=== PATIENT | female | born 1985 | race Caucasian/White ===

== ENCOUNTER 2016-06-02 00:43 | Emergency (ER) | payer MEDICAID ==
[2016-06-02] MEDS ORDERED: IBUPROFEN 800 MG TABLET PO ONE (00:59)
--- NOTE | 2016-06-02 00:59 | ER Document Report ---
ED Medical Screen (RME) - General Stated Complaint: RIGHT ARM PAIN Time seen by provider: 00:56 Mode of Arrival: Ambulatory Information source: Patient Notes: 30-year-old female presents to ED for a cyst right axilla. The knot to the right axilla appears to be an abscess. Last menstrual period 05/05/2016. Site very tender to the touch she states she has a history of abscesses. I have greeted and performed a rapid initial assessment of this patient. A comprehensive ED assessment and evaluation of the patient, analysis of test results and completion of medical decision making process will be conducted by an additional ED providers. TRAVEL OUTSIDE OF THE [place] IN LAST 30 DAYS: No - Related Data Allergies/Adverse Reactions: cephalexin monohydrate [From Keflex] Allergy (Intermediate, Verified 05/12/14 11 :39) Hives codeine [Codeine] Allergy (Intermediate, Verified 05/12/14 11:39) Hives hydrocodone bitartrate [From Lortab] Allergy (Intermediate, Verified 05/12/14 11 :39) Hives oxycodone HCl [From Percocet] Allergy (Intermediate, Verified 05/12/14 11:39) Hives Penicillins Allergy (Intermediate, Verified 05/12/14 11:39) Hives prednisone [Prednisone] Allergy (Intermediate, Verified 05/12/14 11:39) Hives promethazine HCl [From Phenergan] Allergy (Intermediate, Verified 05/12/14 11:39 ) Hives Past Medical History Neurological Medical History: Renal/ Medical History: Denies: Hx Kidney Stones, Hx Ovarian Cysts, Hx Pelvic Inflammatory Disease Malignancy Medical History: Denies: Hx Breast Cancer, Hx Cervical Cancer, Hx Ovarian Cancer Psychiatric Medical History: Reports: Hx Depression Denies: Hx Bipolar Disorder, Hx Post Traumatic Stress Disorder, Hx Schizophrenia Infectious Medical History: Denies: Hx MRSA Past Surgical History: Reports: Hx Section, Hx Gynecologic Surgery - D& C - Immunizations Hx Diphtheria, Pertussis, Tetanus Vaccination: Yes
[2016-06-02] MEDS ORDERED: HYDROMORPHONE HCL 2 MG TABLET PO ONE (07:27)
[2016-06-02] MEDS ORDERED: CLINDAMYCIN HCL 150 MG CAPSULE PO ONE (07:27)
--- NOTE | 2016-06-02 07:31 | ER Document Report ---
HPI - HPI Patient complains to provider of: lump to right axilla Onset: Other - 2 days ago Onset/Duration: Persistent Quality of pain: Achy Pain Level: 5 Context: Patient complains of tender lump to right axilla that started to develop 2 days ago. Patient has a previous history of abscesses to her axillary area in the past. Patient denies any fever or history of MRSA. Associated Symptoms: Other - Tender lump to right axilla Exacerbated by: Movement Relieved by: Denies Similar symptoms previously: Yes Recently seen / treated by doctor: No - ROS ROS below otherwise negative: Yes Systems Reviewed and Negative: Yes All other systems reviewed and negative - CONSTITUTIONAL Constitutional: DENIES: Fever, Chills - NEURO Neurology: DENIES: Headache - CARDIOVASCULAR Cardiovascular: DENIES: Chest pain - REPRODUCTIVE LMP: 05/05/2016 Reproductive: DENIES: : - DERM Skin Color: Normal Notes: Tender area to right axilla Past Medical History - General Information source: Patient - Social History Smoking Status: Current Every Day Smoker Frequency of alcohol use: None Drug Abuse: None Occupation: food service supervisor Lives with: Family Family History: Reviewed & Not Pertinent Patient has suicidal ideation: No Patient has homicidal ideation: No Neurological Medical History: Renal/ Medical History: Denies: Hx Kidney Stones, Hx Ovarian Cysts, Hx Peritoneal Dialysis, Hx Pelvic Inflammatory Disease Malignancy Medical History: Denies: Hx Breast Cancer, Hx Cervical Cancer, Hx Ovarian Cancer Psychiatric Medical History: Reports: Hx Depression Denies: Hx Bipolar Disorder, Hx Post Traumatic Stress Disorder, Hx Schizophrenia Infectious Medical History: Denies: Hx MRSA Past Surgical History: Reports: Hx Section, Hx Gynecologic Surgery - D& C - Immunizations Hx Diphtheria, Pertussis, Tetanus Vaccination: Yes Vertical Provider Document - CONSTITUTIONAL Agree With Documented VS: Yes Exam Limitations: No Limitations General Appearance: WD/WN, No Apparent Distress - INFECTION CONTROL TRAVEL OUTSIDE OF THE [place] IN LAST 30 DAYS: No - HEENT HEENT: Atraumatic, Normocephalic - NECK Neck: Normal Inspection - RESPIRATORY Respiratory: Breath Sounds Normal, No Respiratory Distress O2 Sat by Pulse Oximetry: 98 - CARDIOVASCULAR Cardiovascular: Regular Rate, Regular Rhythm - BACK Back: Normal Inspection - MUSCULOSKELETAL/EXTREMETIES Musculoskeletal/Extremeties: MAEW - NEURO Level of Consciousness: Awake, Alert, Appropriate - DERM Integumentary: Warm, Abscess - Tender indurated area to right axilla, no central area of fluctuance. No concern for lymphangitis Course - Re-evaluation Re-evalutation: 06/02/16 07:28 Patient given the option of either incision and drainage or treating with oral antibiotics and warm compresses waiting for abscess to become fluctuant, patient declines incision and drainage at this time and prefers oral antibiotics at this time. Discussed worsening signs or symptoms that patient should return immediately for. - Vital Signs Vital signs: Temp Pulse Resp BP Pulse Ox 97.7 F 118 H 18 137/78 H 98 06/02/16 00:54 06/02/16 00:54 06/02/16 00:54 06/02/16 00:54 06/02/16 00:54 Discharge - Discharge Clinical Impression: Abscess Condition: Stable Disposition: HOME, SELF-CARE Instructions: Abscess ([facility]), Oral Narcotic Medication ([facility]), Clindamycin ([facility]) , Warm Packs ([facility]) Additional Instructions: Return immediately for any new or worsening symptoms Followup with your primary care provider, call tomorrow to make a followup appointment Apply warm compresses multiple times each day Prescriptions: Clindamycin HCl [Cleocin Hcl] 300 mg PO QID #28 capsule Hydromorphone HCl [Dilaudid 2 mg Tablet] 2 mg PO Q6 PRN #15 tablet PRN Reason: Forms: Return to Work Referrals: [facility] [Provider Group] - Follow up as needed [facility] [[facility]] - Follow up as needed
[2016-06-02 07:44] VITALS: BP 119/81
== END 2016-06-02 07:44 | disposition home or self-care (01) ==
LOC: ER 00:43
DX: L02.411 Cutaneous abscess of right axilla (principal); F17.200 Nicotine dependence, unspecified, uncomplicated
CPT/HCPCS: 99282; J3490 ×3

== ENCOUNTER 2017-01-31 00:44 | Emergency (ER) | payer MEDICAID ==
[2017-01-31 00:55] VITALS: BP 133/89
[2017-01-31] MEDS ORDERED: PERMETHRIN 1% LOTION 59 ML TP ONE (01:12)
--- NOTE | 2017-01-31 01:16 | ER Document Report ---
ED General - General Chief Complaint: Rash, itching Stated Complaint: POSSIBLE ALLERGIC REACTION Time Seen by Provider: 01/31/17 01:05 Notes: Patient is a 31-year-old female presents with complaint of a rash. Says been there for approximately month. She cleans houses for living. She denies any other symptoms. She says it has recently gotten worse now her kids and her fianc also have developed a rash. She has several red bumps over her feet and hands onto her legs. She denies noticing any bugs in her house. She says she keeps her house very clean. She denies any systemic symptoms. TRAVEL OUTSIDE OF THE [place] IN LAST 30 DAYS: No - Related Data Allergies/Adverse Reactions: cephalexin monohydrate [From Keflex] Allergy (Intermediate, Verified 06/02/16 07 :39) Hives codeine [Codeine] Allergy (Intermediate, Verified 06/02/16 07:39) Hives hydrocodone bitartrate [From Lortab] Allergy (Intermediate, Verified 06/02/16 07 :39) Hives oxycodone HCl [From Percocet] Allergy (Intermediate, Verified 06/02/16 07:39) Hives Penicillins Allergy (Intermediate, Verified 06/02/16 07:39) Hives prednisone [Prednisone] Allergy (Intermediate, Verified 06/02/16 07:39) Hives promethazine HCl [From Phenergan] Allergy (Intermediate, Verified 06/02/16 07:39 ) Hives Past Medical History - Social History Smoking Status: Unknown if Ever Smoked Frequency of alcohol use: None Drug Abuse: None Family History: Reviewed & Not Pertinent Neurological Medical History: Renal/ Medical History: Denies: Hx Kidney Stones, Hx Ovarian Cysts, Hx Peritoneal Dialysis, Hx Pelvic Inflammatory Disease Malignancy Medical History: Denies: Hx Breast Cancer, Hx Cervical Cancer, Hx Ovarian Cancer Psychiatric Medical History: Reports: Hx Depression Denies: Hx Bipolar Disorder, Hx Post Traumatic Stress Disorder, Hx Schizophrenia Infectious Medical History: Denies: Hx MRSA Past Surgical History: Reports: Hx Section, Hx Gynecologic Surgery - D& C - Immunizations Hx Diphtheria, Pertussis, Tetanus Vaccination: Yes Review of Systems - Review of Systems Notes: My Normal Review Basic REVIEW OF SYSTEMS: CONSTITUTIONAL : Denies fever, chills, or sweats. Denies recent illness. RESPIRATORY: Denies cough, cold, or chest congestion. Denies shortness of breath, difficulty breathing, or wheezing. GASTROINTESTINAL: Denies abdominal pain. Denies nausea, vomiting, or diarrhea. Denies constipation. Last BM: MUSCULOSKELETAL: Denies neck or back pain or joint pain or swelling. SKIN: Rash over extremities. ALL OTHER SYSTEMS REVIEWED AND NEGATIVE. Physical Exam - Vital signs Vitals: Temp Pulse Resp BP Pulse Ox 98.6 F 96 16 133/89 H 99 01/31/17 00:53 01/31/17 00:53 01/31/17 00:53 01/31/17 00:53 01/31/17 00:53 - Notes Notes: General Appearance: Well nourished, alert, cooperative, no acute distress, no obvious discomfort. Vitals: reviewed, See vital signs table. Head: no swelling or tenderness to the head Eyes: PERRL, EOMI, Conjuctiva clear Mouth: No decreasd moisture Extremities: strength 5/5 in all extremities, good pulses in all extremities, no swelling or tenderness in the extremities, no edema. Skin: Patient has several small red bumps that started between webspaces of her fingers and go up her arms and also some on her legs. This appears consistent with scabies. Neuro: speech clear, oriented x 3, normal affect, responds appropriately to questions. Course - Re-evaluation Re-evalutation: 01/31/17 01:25 Patient has a rash consistent with scabies. I informed her that bedbugs is also possible however I think most likely this is scabies. I was prescribed her permethrin cream. I encourage her to have a community relations manager come in [facility]. She says her fianc and kids are now getting the same rash and therefore I told her that they should either be evaluated by plumber helper or come to the ER for evaluation and treatment. Patient encouraged to return to ER if she has fevers, worsening rash, or feels unwell. Patient agrees with plan will be discharged home. Dictation of this chart was performed using voice recognition software; therefore, there may be some unintended grammatical errors. - Vital Signs Vital signs: Temp Pulse Resp BP Pulse Ox 98.6 F 96 16 133/89 H 99 01/31/17 00:53 01/31/17 00:53 01/31/17 00:53 01/31/17 00:53 01/31/17 00:53 Discharge - Discharge Clinical Impression: Scabies Condition: Good Disposition: HOME, SELF-CARE Additional Instructions: Please apply the lotion once and than wash off after 8 hours. I suspect your rash is scabies; however, bed bugs is also possible. Please thoroughly clean all your bed sheets and blankets. Please have an community relations manager come and spray your house. Please bring your kids to the ER or their plumber helper for reevaluation and treatment. Follow up with a doctor in 5 days for reevaluation Forms: Return to Work
[2017-01-31] MEDS ORDERED: PERMETHRIN 1% LOTION 59 ML ONE (01:25)
== END 2017-01-31 01:44 | disposition home or self-care (01) ==
LOC: ER 00:44
DX: B86 Scabies (principal)
CPT/HCPCS: 99282; J3490

== ENCOUNTER 2017-03-23 10:04 | Emergency (ER) | payer MEDICAID ==
[2017-03-23 10:16] VITALS: BP 124/64
--- NOTE | 2017-03-23 10:26 | ER Document Report ---
ED General - General Chief Complaint: Abscess Stated Complaint: BUTTOCK PAIN Time Seen by Provider: 03/23/17 10:24 Mode of Arrival: Ambulatory Information source: Patient Notes: Patient is a 31-year-old female who presents with abscess to left buttock that started 2-3 days ago. 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 She states that she has not tried any medicine at home for pain. She denies any fever, chills, body aches, drainage or bleeding. She states she has had them incised and drained before and she has also had it where she was just treated with antibiotics and it drained on its own at home. TRAVEL OUTSIDE OF THE [place] IN LAST 30 DAYS: No - Related Data Allergies/Adverse Reactions: cephalexin monohydrate [From Keflex] Allergy (Intermediate, Verified 06/02/16 07 :39) Hives codeine [Codeine] Allergy (Intermediate, Verified 06/02/16 07:39) Hives hydrocodone bitartrate [From Lortab] Allergy (Intermediate, Verified 06/02/16 07 :39) Hives oxycodone HCl [From Percocet] Allergy (Intermediate, Verified 06/02/16 07:39) Hives Penicillins Allergy (Intermediate, Verified 06/02/16 07:39) Hives prednisone [Prednisone] Allergy (Intermediate, Verified 06/02/16 07:39) Hives promethazine HCl [From Phenergan] Allergy (Intermediate, Verified 06/02/16 07:39 ) Hives acetaminophen [From Vicodin] Allergy (Verified 03/23/17 10:05) hydrocodone [From Vicodin] Allergy (Verified 03/23/17 10:05) Past Medical History - General Information source: Patient - Social History Smoking Status: Current Every Day Smoker Family History: Reviewed & Not Pertinent Neurological Medical History: Renal/ Medical History: Denies: Hx Kidney Stones, Hx Ovarian Cysts, Hx Peritoneal Dialysis, Hx Pelvic Inflammatory Disease Malignancy Medical History: Denies: Hx Breast Cancer, Hx Cervical Cancer, Hx Ovarian Cancer Psychiatric Medical History: Reports: Hx Depression Denies: Hx Bipolar Disorder, Hx Post Traumatic Stress Disorder, Hx Schizophrenia Infectious Medical History: Denies: Hx MRSA Past Surgical History: Reports: Hx Section, Hx Gynecologic Surgery - D& C - Immunizations Hx Diphtheria, Pertussis, Tetanus Vaccination: Yes Review of Systems - Review of Systems Constitutional: See HPI EENT: No symptoms reported Cardiovascular: No symptoms reported Respiratory: No symptoms reported Gastrointestinal: No symptoms reported Genitourinary: No symptoms reported Female Genitourinary: No symptoms reported Musculoskeletal: No symptoms reported Skin: See HPI Hematologic/Lymphatic: No symptoms reported Neurological/Psychological: No symptoms reported Physical Exam - Vital signs Vitals: Temp Pulse Resp BP Pulse Ox 98.2 F 115 H 18 124/64 97 03/23/17 10:14 03/23/17 10:14 03/23/17 10:14 03/23/17 10:14 03/23/17 10:14 - Notes Notes: PHYSICAL EXAM: CONSTITUTIONAL: Alert and oriented, well-appearing and in no acute distress. HENT: Normocephalic, atraumatic. Trachea midline. Uvula midline. Moist mucous membranes. EYES: Pupils equal round and reactive to light, EOM intact. Sclera anicteric, conjunctiva are normal. No entrapment. NECK: supple without lymphadenopathy. No midline tenderness or paraspinous muscle spasms. HEART: Regular rate and rhythm without murmurs. LUNGS: CTAB and equal. No wheezes, rales or rhonchi. GI: Normactive bowel sounds. Nontender, non-distended. No organomegaly. no CVAT. BACK: nontender, no paraspinous spasm, 5+/5 strengths, DTRs 2+, SLR -. EXTREMITIES: Normal range of motion, no pitting edema. No cyanosis. Cap Refill < 3 seconds. NEURO: Cranial nerves grossly intact. Normal sensory/motor exams. PSYCH: Normal mood, normal affect. SKIN: Warm and dry. Normal turgor. 4 cm round area of fluctuance to left buttocks with surrounding 2 cm of erythema. No drainage or bleeding. Course - Re-evaluation Re-evalutation: 03/23/17 10:37 Patient seen and examined. Patient is alert and oriented, nontoxic in appearance and well-hydrated. Mild tachycardia noted on vital signs that I suspect is most likely due to pain/anxiety. Patient is afebrile. 4 cm area of fluctuance to left buttock with surrounding erythema measuring approximately 2 cm. Area is very tender. Will perform I&D, obtain wound culture and treat with Bactrim due to history of MRSA. Ordered patient IM Toradol for pain. 03/23/17 11:30 Presented to room to perform incision and drainage. Patient had already placed her clothes back on and was stating that she was not going to allow me to perform the procedure until I provided her with Dilaudid or Demerol which is "the only thing that works for me" according to the patient. I explained that the main course of treatment for an abscess is incision and drainage. I had offered her Toradol IM for pain which she refused and p.o. [place] which she refused. I explained that she would get pain relief with anesthetic for the procedure the patient again became angry that I was not giving her Dilaudid and stated that she did not want to stay for the procedure. I explained the risk of leaving which included infection that could lead to sepsis and even . Patient again stated she would rather just go to her primary care doctor to have it drained. She became very irate stating "last time I was here they gave me Dilaudid and did not drain it." I explained again that I would be treating her pain appropriately and giving her antibiotics as a follow-up to the incision and drainage and she again stated she did not want to have the procedure done here. Patient signed AMA form and left. - Vital Signs Vital signs: Temp Pulse Resp BP Pulse Ox 98.2 F 115 H 18 124/64 97 03/23/17 10:14 03/23/17 10:14 03/23/17 10:14 03/23/17 10:14 03/23/17 10:14
[2017-03-23] MEDS ORDERED: KETOROLAC TROMETHAMINE 60 MG/2 ML SDV IM ONE (10:36)
[2017-03-23] MEDS ORDERED: LIDOCAINE 1% INJ-PF (10 MG/ML) 30 ML SDV INJ ONE (10:36)
== END 2017-03-23 11:29 | disposition left against medical advice (07) ==
LOC: ER 10:04
DX: L02.31 Cutaneous abscess of buttock (principal); R00.0 Tachycardia, unspecified; F17.200 Nicotine dependence, unspecified, uncomplicated; Z53.29 Procedure and treatment not carried out because of patient's decision for other reasons; Z86.14 Personal history of Methicillin resistant Staphylococcus aureus infection; Z88.1 Allergy status to other antibiotic agents; Z88.5 Allergy status to narcotic agent; Z88.0 Allergy status to penicillin; Z88.8 Allergy status to other drugs, medicaments and biological substances; Z88.6 Allergy status to analgesic agent
CPT/HCPCS: 99283

== ENCOUNTER 2017-03-23 15:41 | Emergency (ER) | payer MEDICAID ==
[2017-03-23] MEDS ORDERED: NORMAL SALINE 1000 ML 1,000 ML IV ONE (16:20)
[2017-03-23] MEDS ORDERED: HYDROMORPHONE HCL INJ/PF 2 MG/ML AMPULE IV ONE (16:20)
[2017-03-23] MEDS ORDERED: CLINDAMYCIN 600 MG/D5W RTU 600 MG/50 ML RTUPB IV ONE (16:21)
--- NOTE | 2017-03-23 16:23 | ER Document Report ---
HPI - HPI Patient complains to provider of: abscess Onset: Other - 3 days Onset/Duration: Worse Quality of pain: Sharp Pain Level: 5 Context: Patient complains of abscess to left buttock for the past 3 days. Patient reports a history of previous abscesses in the past. Patient denies any fever history of diabetes. Patient also reports having a draining lesion under the left axilla and a tender swollen area under the right axilla. Associated Symptoms: Other - Skin abscess. denies: Fever Exacerbated by: Sitting, Movement Relieved by: Denies Similar symptoms previously: Yes Recently seen / treated by doctor: Yes - ROS ROS below otherwise negative: Yes Systems Reviewed and Negative: Yes All other systems reviewed and negative - CONSTITUTIONAL Constitutional: DENIES: Fever, Chills - GASTROINTESTINAL Gastrointestinal: DENIES: Nausea, Patient vomiting - REPRODUCTIVE Reproductive: DENIES: : - DERM Skin Color: Erythema Notes: Abscess Past Medical History - General Information source: Patient - Social History Smoking Status: Current Every Day Smoker Smoking Education Provided: Yes Frequency of alcohol use: None Drug Abuse: None Occupation: Housekeeping Family History: Reviewed & Not Pertinent Neurological Medical History: Renal/ Medical History: Denies: Hx Kidney Stones, Hx Ovarian Cysts, Hx Peritoneal Dialysis, Hx Pelvic Inflammatory Disease Malignancy Medical History: Denies: Hx Breast Cancer, Hx Cervical Cancer, Hx Ovarian Cancer Psychiatric Medical History: Reports: Hx Depression Denies: Hx Bipolar Disorder, Hx Post Traumatic Stress Disorder, Hx Schizophrenia Infectious Medical History: Denies: Hx MRSA Past Surgical History: Reports: Hx Section, Hx Gynecologic Surgery - D& C - Immunizations Hx Diphtheria, Pertussis, Tetanus Vaccination: Yes Vertical Provider Document - CONSTITUTIONAL Agree With Documented VS: Yes Exam Limitations: No Limitations General Appearance: WD/WN, No Apparent Distress - INFECTION CONTROL TRAVEL OUTSIDE OF THE [place] IN LAST 30 DAYS: No - HEENT HEENT: Atraumatic, Normocephalic - NECK Neck: Normal Inspection, Supple. negative: Lymphadenopathy-Left, Lymphadenopathy-Right - RESPIRATORY Respiratory: Breath Sounds Normal, No Respiratory Distress O2 Sat by Pulse Oximetry: 100 - CARDIOVASCULAR Cardiovascular: Regular Rhythm, No Murmur, Tachycardia - BACK Back: Normal Inspection - MUSCULOSKELETAL/EXTREMETIES Musculoskeletal/Extremeties: MAEW, FROM - NEURO Level of Consciousness: Awake, Alert, Appropriate Motor/Sensory: No Motor Deficit - DERM Integumentary: Warm, Dry, Abscess - Patient with fluctuant abscess to left buttock, patient with additional flexion abscess right axilla. Mild erythema surrounding abscess to left buttock Course - Re-evaluation Re-evalutation: 03/23/17 16:23 Controlled substance database reviewed 03/23/17 Smoking cessation handout given - Vital Signs Vital signs: Temp Pulse Resp BP Pulse Ox 99.2 F 132 H 20 141/87 H 100 03/23/17 15:50 03/23/17 15:50 03/23/17 15:50 03/23/17 15:50 03/23/17 15:50 Procedures - Incision and Drainage Left Buttock Type: Simple Anesthetic type: 1% Lidocaine Blade size: 11 I&D procedure: Betadine prep applied Incision Method: Incision made by scalpel Amount/type of drainage: Large amount of purulent drainage Adult Front & Back picture: 1 - Abscess Right Arm Type: Simple Anesthetic type: 1% Lidocaine Blade size: 11 I&D procedure: Betadine prep applied Incision Method: Incision made by scalpel Amount/type of drainage: Small amount of purulent drainage Adult Front & Back picture: 1 - Abscess Discharge - Discharge Clinical Impression: Abscess, Encounter for incision and drainage procedure Condition: Stable Disposition: HOME, SELF-CARE Additional Instructions: Return immediately for any new or worsening symptoms Followup with your primary care provider, call tomorrow to make a followup appointment ABSCESS: You have an abscess (boil). This a pus-forming infection, usually due to staph. Some boils may be left to drain on their own, but most require lancing. From the time the tender lump first appears, it may be three or four days before the abscess is ready to dev. Local heat and rest help at this stage of treatment. An antibiotic may prevent spread of the infection. Once the abscess is opened, packing may be placed into it. This is done so pus is not sealed inside by premature closure of the cavity. The packing will be removed at your follow-up visit or you may be advised to remove it yourself at home. Sometimes this packing must be replaced a few times during healing. The wound will heal with surprisingly little scar. Depending on the size and location of an abscess, healing can take one to four weeks. You may shower and wash the area around the incision site two or three times a day. Antibiotics may be prescribed, but are usually not necessary after an abscess has been drained. If you develop fever, chills, worsening pain, or increasing swelling in the area, call the doctor or return immediately. POST INCISION AND DRAINAGE: You have had an incision made to allow drainage of an abscess. The incision must remain open so that pus and debris can drain from the wound. If the abscess cavity is large, packing is placed. This keeps the tissues from collapsing and trapping pus inside, while the body shrinks the cavity. The packing may need to be replaced every day or two. The physician will instruct you on the packing. Keep a bulky dressing over the area. Replace it if it becomes saturated with blood or pus. Do not disturb the packing (if present). You may shower and cleanse the area with gentle soap and warm water two or three times a day. Local warmth may be soothing, and may promote faster healing. Return if you develop high fever or chills, or if you note spreading redness, increasing swelling, or increasing tenderness. ORAL NARCOTIC MEDICATION: You have been given a prescription for pain control. This medication is a narcotic. It's best taken with food, as nausea can result if taken on an empty stomach. Don't operate machinery or drive within six hours of taking this medication. Do not combine this medicine with alcohol, or with any medication which can cause sedation (such as cold tablets or sleeping pills) unless you get permission from the physician. Narcotics tend to cause constipation. If possible, drink plenty of fluids and eat a diet high in fiber and fruits. FOLLOW-UP CARE: Most simple abscesses will not require a follow up visit. If you had packing placed in the abscess, remove it as instructed by the physician. If you have been referred to a physician for follow-up care, call the physicians office for an appointment as you were instructed or within the next two days. If you experience worsening or a significant change in your symptoms, return to the Emergency Department at any time for re-evaluation. Prescriptions: Clindamycin HCl [Cleocin Hcl] 300 mg PO QID #28 capsule Hydromorphone HCl [Dilaudid 2 mg Tablet] 2 mg PO Q6 PRN #10 tablet PRN Reason: Forms: Smoking Cessation Education Referrals: KENNY TURCIOS MD [Primary Care Provider] - Follow up tomorrow
[2017-03-23 18:40] VITALS: BP 125/76
== END 2017-03-23 18:40 | disposition home or self-care (01) ==
LOC: ER 15:41
DX: L02.31 Cutaneous abscess of buttock (principal); L02.413 Cutaneous abscess of right upper limb; F17.200 Nicotine dependence, unspecified, uncomplicated; Z71.6 Tobacco abuse counseling
CPT/HCPCS: 99283; 96375; 96365; 87040; 10061; S0077; J1170; J7030

== ENCOUNTER 2018-11-05 17:32 | Emergency (ER) | payer MEDICAID ==
--- NOTE | 2018-11-05 18:48 | ER Document Report ---
HPI - HPI Patient complains to provider of: work note Time Seen by Provider: 11/05/18 18:34 Pain Level: 3 Context: 33-year-old female with reported history of hiatal hernia presents to the emergency department seeking a work note. 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 She stated to her employer that she needed she currently states that she has some mild abdominal pain that seems to be shooting through to her back. She denies any nausea or vomiting, denies any limb weakness or paresthesias, denies any other symptoms. - GASTROINTESTINAL Gastrointestinal: REPORTS: Abdominal Pain - REPRODUCTIVE Reproductive: DENIES: : Past Medical History - Social History Smoking Status: Current Every Day Smoker Frequency of alcohol use: None Drug Abuse: None Family History: Reviewed & Not Pertinent Patient has suicidal ideation: No Patient has homicidal ideation: No Neurological Medical History: Renal/ Medical History: Denies: Hx Kidney Stones, Hx Ovarian Cysts, Hx Peritoneal Dialysis, Hx Pelvic Inflammatory Disease Malignancy Medical History: Denies: Hx Breast Cancer, Hx Cervical Cancer, Hx Ovarian Cancer Psychiatric Medical History: Reports: Hx Depression Denies: Hx Bipolar Disorder, Hx Post Traumatic Stress Disorder, Hx Schizophrenia Infectious Medical History: Denies: Hx MRSA Past Surgical History: Reports: Hx Section, Hx Cholecystectomy, Hx Gynecologic Surgery - D&C - Immunizations Hx Diphtheria, Pertussis, Tetanus Vaccination: Yes Vertical Provider Document - CONSTITUTIONAL Notes: PHYSICAL EXAMINATION: Reviewed vital signs and charting by RN GENERAL: Alert, interacts well. No acute distress. HEAD: Normocephalic, atraumatic. EYES: Pupils equal and round. Extraocular movements intact. ENT: Oral mucosa moist, tongue midline. NECK: Full range of motion. Trachea midline. ABDOMEN: soft, mild epigastric tenderness. No distention. Bowel sounds present EXTREMITIES: Moves all 4 extremities spontaneously. No edema, No cyanosis. PSYCH: Normal affect, normal mood. SKIN: Warm, dry, normal turgor. No rashes or lesions noted. - INFECTION CONTROL TRAVEL OUTSIDE OF THE [place] IN LAST 30 DAYS: No Course - Re-evaluation Re-evalutation: 11/05/18 19:39 Patient comes to the emergency department seeking a work note. Abdominal exam unremarkable although she did have some epigastric tenderness to palpation. Screening chest x-ray obtained which did not show any evidence of a hiatal hernia. Nonetheless, I will give the patient a work restriction lifting, pushing, pulling no more than 25 pounds for the rest of this week until she can follow-up with her previous GI doctor to get records. Stable for discharge - Vital Signs Vital signs: Temp Pulse Resp BP Pulse Ox 97.7 F 87 16 133/82 H 98 11/05/18 17:39 11/05/18 17:39 11/05/18 17:39 11/05/18 17:39 11/05/18 17:39 Discharge - Discharge Clinical Impression: Abdominal discomfort, epigastric Condition: Good Disposition: HOME, SELF-CARE Additional Instructions: You came to the emergency department this afternoon seeking a work note. This is typically not appropriate in the ER but because you are having some epigastric discomfort and you are currently in a tight situation waiting for insurance we have given you a work restriction for the next 5 days. it is important that you follow-up and go to the hris coordinator's office where you had the upper endoscopy done to diagnose the hernia for definitive guidance and for proper work restriction. If you develop intractable nausea vomiting, severe abdominal pain, you pass out, you have acute shortness of breath or severe chest pain please return to the emergency department for reevaluation. Forms: Restricted Release Referrals: KENNY TURCIOS MD [ACTIVE STAFF] - 11/12/18
--- NOTE | 2018-11-05 19:39 | RADIOLOGY REPORT (SQ) ---
EXAM DESCRIPTION: CHEST 2 VIEWS COMPLETED DATE/TIME: 11/05/2018 7:21 pm REASON FOR STUDY: upper abd pain, sob, ?hiatal hernia COMPARISON: None. EXAM PARAMETERS: NUMBER OF VIEWS: two views TECHNIQUE: Digital Frontal and Lateral radiographic views of the chest acquired. RADIATION DOSE: NA LIMITATIONS: none FINDINGS: LUNGS AND PLEURA: No opacities, masses or pneumothorax. No pleural effusion. MEDIASTINUM AND HILAR STRUCTURES: No masses or contour abnormalities. HEART AND VASCULAR STRUCTURES: Heart normal size. No evidence for failure. BONES: No acute findings. HARDWARE: None in the chest. OTHER: No other significant finding. IMPRESSION: NO ACUTE RADIOGRAPHIC FINDING IN THE CHEST. No hiatus hernia identified. TECHNICAL DOCUMENTATION: JOB ID: [id number] [place]-72 2010 [employer]- All Rights Reserved Reading location - IP/workstation name: [email or web address]
[2018-11-05 20:27] VITALS: BP 131/96
== END 2018-11-05 20:28 | disposition home or self-care (01) ==
LOC: ER 17:32
DX: R10.13 Epigastric pain (principal); F17.200 Nicotine dependence, unspecified, uncomplicated
CPT/HCPCS: 71046; 99284

== ENCOUNTER 2020-02-09 07:53 | Emergency (ER) | payer SELFPAY ==
[2020-02-09 07:57] VITALS: BP 137/90
[2020-02-09 09:20] LABS: APPEARANCE,URINE CLEAR; BILIRUBIN,URINE NEGATIVE (NEGATIVE); COLOR,URINE AMBER; GLUCOSE, URINE NEGATIVE (NEGATIVE); KETONES,URINE NEGATIVE (NEGATIVE); LEUKOCYTE ESTERASE,URINE TRACE (NEGATIVE); NITRITE,URINE POSITIVE (NEGATIVE); PROTEIN,URINE NEGATIVE (NEGATIVE); URINE SPECIFIC GRAVITY 1.008
--- NOTE | 2020-02-09 09:36 | ER Document Report ---
ED Eye Complaint - General Chief Complaint: Urinary Frequency Stated Complaint: EYE PAIN/URINARY SYMPTOMS Time Seen by Provider: 02/09/20 08:38 Notes: 34-year-old female presents to the ER with 2 complaints. First complaint is a lump on her left eyelid. She has had this for about 6 months. She had a similar one 12 months ago that never went away and was just became a lump on her eyelid and then 6 months ago a second bump has come on her eyelid. She denies blurred vision. Denies any redness or drainage from the area. Denies any cold sore throat runny nose congestion. Denies chest pain denies shortness of breath she also complains some urinary frequency and a little bit of burning with urination denies . Denies abdominal pain denies flank pain. Denies hematuria. Describes discomfort from the bump on her eye is mild to moderate. It comes and goes it does not radiate. Has not seen an eye doctor for this. Dysuria has been going on for about 2 days. TRAVEL OUTSIDE OF THE [place] IN LAST 30 DAYS: No - Related Data Allergies/Adverse Reactions: cephalexin monohydrate [From Keflex] Allergy (Intermediate, Verified 02/09/20 08:46) Hives codeine [Codeine] Allergy (Intermediate, Verified 02/09/20 08:46) Hives hydrocodone bitartrate [From Lortab] Allergy (Intermediate, Verified 02/09/20 08:46) Hives oxycodone HCl [From Percocet] Allergy (Intermediate, Verified 02/09/20 08:46) Hives Penicillins Allergy (Intermediate, Verified 02/09/20 08:46) Hives prednisone [Prednisone] Allergy (Intermediate, Verified 02/09/20 08:46) Hives promethazine HCl [From Phenergan] Allergy (Intermediate, Verified 02/09/20 08:46) Hives acetaminophen [From Vicodin] Allergy (Verified 02/09/20 08:46) hydrocodone [From Vicodin] Allergy (Verified 02/09/20 08:46) Past Medical History - Social History Smoking Status: Current Every Day Smoker Chew tobacco use (# tins/day): No Frequency of alcohol use: None Drug Abuse: Marijuana Family History: Reviewed & Not Pertinent Neurological Medical History: Renal/ Medical History: Denies: Hx Kidney Stones, Hx Ovarian Cysts, Hx Peritoneal Dialysis, Hx Pelvic Inflammatory Disease Malignancy Medical History: Denies: Hx Breast Cancer, Hx Cervical Cancer, Hx Ovarian Cancer GI Medical History: Reports: Hx Hiatal Hernia Psychiatric Medical History: Reports: Hx Depression Denies: Hx Bipolar Disorder, Hx Post Traumatic Stress Disorder, Hx Schizophrenia Infectious Medical History: Denies: Hx MRSA Past Surgical History: Reports: Hx Section, Hx Cholecystectomy, Hx Gynecologic Surgery - D&C - Immunizations Hx Diphtheria, Pertussis, Tetanus Vaccination: Yes Review of Systems - Review of Systems Constitutional: denies: Chills, Fever EENT: Eye pain. denies: Eye discharge, Blurred vision, Tearing, Double vision, Ear pain, Nose pain, Throat pain Cardiovascular: No symptoms reported Respiratory: No symptoms reported Genitourinary: Burning, Dysuria. denies: Discharge, Flank pain Female Genitourinary: denies: Irregular period, Vaginal discharge Hematologic/Lymphatic: No symptoms reported Neurological/Psychological: No symptoms reported -: Yes All other systems reviewed and negative Physical Exam - Vital signs Vitals: Temp Pulse Resp BP Pulse Ox 97.5 F 119 H 18 137/90 H 99 02/09/20 07:57 02/09/20 07:57 02/09/20 07:57 02/09/20 07:57 02/09/20 07:57 - Notes Notes: GENERAL_APPEARANCE: well_nourished, alert, cooperative VITALS: reviewed, see vital signs table. HEAD: no_swelling\tenderness on the head. EYES: PERRL, EOMI, conjunctiva_clear. Left eyelid has 2 pea-sized lumps, there is one directly medial that is hard to touch no redness or heat or fluctuance. There is a larger one just bigger than a pea on the lateral surface of the left eyelid. There is no obvious redness or obvious head or anything that would suggest an active stye. NOSE: no_nasal_discharge. MOUTH: (-)decreased moisture. THROAT: no_tonsilar_inflammation, no_airway_obstruction. no_lymphadenopathy NECK: supple, no_neck_tenderness, (-)thyromegaly. BACK: no_back_tenderness. CHEST_WALL: no_chest_tenderness. LUNGS: no_wheezing, no_rales, no_rhonchi, (-)accessory muscle use, good air exchange bilateral. HEART: normal_rate, normal_rhythm, normal_S1, normal_S2, (-)S3, (-)S4, no_murmur, no_rub. ABDOMEN: soft, no_abd_tenderness, (-)guarding, (-)rebound, no_organomegaly, no_abd_masses. EXTREMITIES: good pulses in all_extremities, no_swelling\tenderness in the extremities, no_edema. SKIN: warm, dry, good_color, no_rash. MENTAL_STATUS: speech_clear, oriented_X_3, normal_affect, responds_appropriately to questions. Course - Re-evaluation Re-evalutation: 02/09/20 09:34 34 old female comes in complaining of dysuria and lumps on her eyelid. The lumps on the left eyelid looks to be chronic inflammation. She has had one for a year and then the other one for 6 months. I could be focuses of chronic inflammation chalazion or otherwise. There is no signs of any pustule or a head of a stye that could be easily intervened upon. Because of the length of time 6 months to a year I am very hesitant to intervene upon these or do any kind of incision and drainage as he is her likely focuses of chronic inflammatory processes that will need to be done by an surgical garment assembler. The patient does have some trace leukocyte esterase will be treated for UTI. No flank pain or pyelonephritis. - Vital Signs Vital signs: Temp Pulse Resp BP Pulse Ox 97.5 F 119 H 18 137/90 H 99 02/09/20 07:57 02/09/20 07:57 02/09/20 07:57 02/09/20 07:57 02/09/20 07:57 - Laboratory Laboratory results interpreted by me: 02/09/20 08:50 Urine Blood SMALL H Urine Nitrite POSITIVE H Urine Urobilinogen 4.0 H Ur Leukocyte Esterase TRACE H Discharge - Discharge Clinical Impression: Chalazion left upper eyelid UTI (urinary tract infection) Qualifiers: Urinary tract infection type: acute cystitis Condition: Good Disposition: HOME, SELF-CARE Instructions: Urinary Tract Infection ([facility]), Chalazion ([facility]) Prescriptions: Sulfamethoxazole/Trimethoprim [Bactrim Ds Tablet] 1 each PO BID #12 tablet
== END 2020-02-09 09:48 | disposition home or self-care (01) ==
LOC: ER 07:53
DX: N30.00 Acute cystitis without hematuria (principal); H00.14 Chalazion left upper eyelid; F17.200 Nicotine dependence, unspecified, uncomplicated; F12.10 Cannabis abuse, uncomplicated; Z88.1 Allergy status to other antibiotic agents; Z88.6 Allergy status to analgesic agent; Z88.5 Allergy status to narcotic agent; Z88.0 Allergy status to penicillin; Z88.8 Allergy status to other drugs, medicaments and biological substances
CPT/HCPCS: 81001; 99283

== ENCOUNTER 2020-05-07 10:12 | Emergency (ER) | payer SELFPAY ==
[2020-05-07] MEDS ORDERED: ONDANSETRON 4 MG TAB.RAPDIS PO ONE (10:22)
--- NOTE | 2020-05-07 10:23 | ER Document Report ---
ED Medical Screen (RME) - General Chief Complaint: Abdominal Pain Stated Complaint: ABDOMINAL PAIN Time Seen by Provider: 05/07/20 10:22 Notes: HPI: 34-year-old female presenting with epigastric pain that has been intermittent over the last 4 days. Prior history of cholecystectomy. States that since the cholecystectomy she has had intermittent episodes of epigastric pain. No fever has had nausea no vomiting no diarrhea PHYSICAL EXAMINATION: Mild tenderness to the epigastric region on palpation I have greeted and performed a rapid initial assessment of this patient. A comprehensive ED assessment and evaluation of the patient, analysis of test results and completion of medical decision making process will be conducted by an additional ED providers. Please note that clinical decision making for this patient was made during the 2019 pandemic of novel coronavirus which caused a significant strain on the healthcare system including at this particular facility. Criteria for admission discharge and level of care decisions as well as treatment decisions have necessarily changed TRAVEL OUTSIDE OF THE [place] IN LAST 30 DAYS: No - Related Data Allergies/Adverse Reactions: cephalexin monohydrate [From Keflex] Allergy (Intermediate, Verified 05/07/20 10:18) Hives codeine [Codeine] Allergy (Intermediate, Verified 05/07/20 10:18) Hives hydrocodone bitartrate [From Lortab] Allergy (Intermediate, Verified 05/07/20 10:18) Hives oxycodone HCl [From Percocet] Allergy (Intermediate, Verified 05/07/20 10:18) Hives Penicillins Allergy (Intermediate, Verified 05/07/20 10:18) Hives prednisone [Prednisone] Allergy (Intermediate, Verified 05/07/20 10:18) Hives promethazine HCl [From Phenergan] Allergy (Intermediate, Verified 05/07/20 10:18) Hives acetaminophen [From Vicodin] Allergy (Verified 05/07/20 10:18) hydrocodone [From Vicodin] Allergy (Verified 05/07/20 10:18) Past Medical History Neurological Medical History: Renal/ Medical History: Denies: Hx Kidney Stones, Hx Ovarian Cysts, Hx Peritoneal Dialysis, Hx Pelvic Inflammatory Disease Malignancy Medical History: Denies: Hx Breast Cancer, Hx Cervical Cancer, Hx Ovarian Cancer GI Medical History: Reports: Hx Hiatal Hernia Psychiatric Medical History: Reports: Hx Depression Denies: Hx Bipolar Disorder, Hx Post Traumatic Stress Disorder, Hx Schizophrenia Infectious Medical History: Denies: Hx MRSA Past Surgical History: Reports: Hx Section, Hx Cholecystectomy, Hx Gynecologic Surgery - D&C - Immunizations Hx Diphtheria, Pertussis, Tetanus Vaccination: Yes Physical Exam - Vital signs Vitals: Temp Pulse Resp BP Pulse Ox 97.8 F 105 H 16 143/85 H 99 05/07/20 10:15 05/07/20 10:15 05/07/20 10:15 05/07/20 10:15 05/07/20 10:15 Course - Vital Signs Vital signs: Temp Pulse Resp BP Pulse Ox 97.8 F 105 H 16 143/85 H 99 05/07/20 10:15 05/07/20 10:15 05/07/20 10:15 05/07/20 10:15 05/07/20 10:15
[2020-05-07] MEDS ORDERED: LIDOCAINE 2% VISCOUS SOLN 15 ML UDCUP PO ONE ×2 (10:50→12:19)
[2020-05-07] MEDS ORDERED: MAG HYDROX/AL HYDROX/SIMETH SUSP 30 ML UDCUP PO ONE ×2 (10:50→12:19)
--- NOTE | 2020-05-07 11:01 | ER Document Report ---
Entered by HAKEEM ROGEL SCRIBE 05/07/20 1031 Acting as scribe for:ERIC FERNANDEZ MD ED GI/ - General Chief Complaint: Upper Abdominal Pain Stated Complaint: ABDOMINAL PAIN Time Seen by Provider: 05/07/20 10:22 Mode of Arrival: Ambulatory Information source: Patient Notes: This 34 year old female patient with a history of hiatal hernia and cholecystectomy presents to the ED today with complaints of epigastric pain that started x5 days ago. Patient describes the pain as a pressure that "shoots through to my back." She states that the pain normally goes away on its own, which it did initially, but it returned x2 days ago. She reports associated nausea without emesis and intermittent dark loose stools. Denies fever or diarrhea. TRAVEL OUTSIDE OF THE [place] IN LAST 30 DAYS: No - Related Data Allergies/Adverse Reactions: cephalexin monohydrate [From Keflex] Allergy (Intermediate, Verified 05/07/20 10:18) Hives codeine [Codeine] Allergy (Intermediate, Verified 05/07/20 10:18) Hives hydrocodone bitartrate [From Lortab] Allergy (Intermediate, Verified 05/07/20 10:18) Hives oxycodone HCl [From Percocet] Allergy (Intermediate, Verified 05/07/20 10:18) Hives Penicillins Allergy (Intermediate, Verified 05/07/20 10:18) Hives prednisone [Prednisone] Allergy (Intermediate, Verified 05/07/20 10:18) Hives promethazine HCl [From Phenergan] Allergy (Intermediate, Verified 05/07/20 10:1 8) Hives acetaminophen [From Vicodin] Allergy (Verified 05/07/20 10:18) hydrocodone [From Vicodin] Allergy (Verified 05/07/20 10:18) Past Medical History - General Information source: Patient - Social History Smoking Status: Current Every Day Smoker Cigarette use (# per day): Yes - 0.5 ppd Chew tobacco use (# tins/day): No Smoking Education Provided: No Frequency of alcohol use: None Drug Abuse: None 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 denies: Fever EENT: No symptoms reported Cardiovascular: No symptoms reported Respiratory: No symptoms reported Gastrointestinal: See HPI, Abdominal pain, Nausea. denies: Diarrhea, Vomiting Genitourinary: No symptoms reported Female Genitourinary: No symptoms reported Musculoskeletal: See HPI, Back pain Skin: No symptoms reported Hematologic/Lymphatic: No symptoms reported Neurological/Psychological: No symptoms reported -: Yes All other systems reviewed and negative Physical Exam - Vital signs Vitals: Temp Pulse Resp BP Pulse Ox 97.8 F 105 H 16 143/85 H 99 05/07/20 10:15 05/07/20 10:15 05/07/20 10:15 05/07/20 10:15 05/07/20 10:15 - General General appearance: Appears well, Alert In distress: None - HEENT Head: Normocephalic, Atraumatic Eyes: Normal Extraocular movements intact: Yes Pupils: PERRL Neck: Normal, Supple - Respiratory Respiratory status: No respiratory distress Chest status: Nontender Breath sounds: Normal Chest palpation: Normal - Cardiovascular Rhythm: Regular Heart sounds: Normal auscultation Murmur: No - Abdominal Inspection: Obese Distension: No distension Bowel sounds: Normal Tenderness: Tender - Epigastric tenderness to palpation. No: Guarding, Rebound Organomegaly: No organomegaly - Back Back: Normal, Nontender - Extremities General upper extremity: Normal inspection General lower extremity: Normal inspection. No: Edema - Neurological Neuro grossly intact: Yes Orientation: AAOx4 Raymond Coma Scale Eye Opening: Spontaneous Geoff Coma Scale Verbal: Oriented Geoff Coma Scale Motor: Obeys Commands Raymond Coma Scale Total: 15 - Psychological Associated symptoms: Normal affect, Normal mood - Skin Skin Temperature: Warm Skin Moisture: Dry Skin Color: Normal Course - Re-evaluation Re-evalutation: 05/07/20 13:00 If first GI cocktail mostly relieved her discomfort and on palpation she was only minimally tender compared to initial examination. A repeat GI cocktail completely relieved the discomfort and there is no tenderness on palpation. On further questioning, the patient states that she occasionally takes Prilosec, and was taking an antacid she usually bought at [employer], she about the same thing another store and it did not seem to work. She also states she got some larger pillows to see if that would help prop her up, occasionally she will sleep in a recliner to elevate her head some. 05/07/20 13:01 - Vital Signs Vital signs: Temp Pulse Resp BP Pulse Ox 97.9 F 88 16 143/91 H 100 05/07/20 13:23 05/07/20 13:23 05/07/20 13:23 05/07/20 13:23 05/07/20 13:23 - Laboratory Results Result Diagrams: 05/07/20 10:27 05/07/20 10:27 Laboratory Results Interpreted: 05/07/20 10:27 RDW 14.9 H Critical Laboratory Results Reviewed: No Critical Results - Radiology Results Critical Radiology Results Reviewed: No Critical Results Discharge - Discharge Clinical Impression: Epigastric abdominal pain GERD (gastroesophageal reflux disease) Qualifiers: Esophagitis presence: esophagitis presence not specified Qualified Code(s): K21.9 - Gastro-esophageal reflux disease without esophagitis Condition: Stable Disposition: HOME, SELF-CARE Additional Instructions: Reflux Disease (GERD): Gastro-Esophageal Reflux Disease (GERD) is caused by stomach acid refluxing back up into the esophagus. The valve at the end of the esophagus may be weak. This is common in persons with a hiatal hernia. GERD symptoms can include indigestion, chest pain, heartburn, or food "sticking." Certain foods, alcohol, and aspirin can make GERD worse. Treatment depends on the severity. Usually, antacids or acid-suppressing medicines are used. When the esophagus is acutely inflamed, the physician will often prescribe membrane-protective drugs such as Carafate. Some patients benefit from medication such as Reglan that tightens the valve at the top of the stomach. Avoid those foods that bring on your symptoms. For many people, these foods are coffee, chocolate, onions, garlic, and carbonated drinks. Don't use alcohol, aspirin, caffeine, or tobacco. Don't eat late at night -- within 4 hours of bedtime. Don't over-eat. If necessary, elevate the head of your bed about 4 inches so that stomach acid will not roll up into your esophagus. Call the doctor if you develop severe chest pain, inability to swallow fluids, fever, or worsening symptoms. Elevate the head of your bed when you sleep at night. Take antacids between meals and at bedtime. Take Prilosec OTC once daily. Avoid eating late in the evening or near the time you will be laying down. Follow-up with a local primary care provider if not improving. Consider following up with [facility] to discuss having a surgical procedure for your hiatal hernia if you do not improve. RETURN TO THE EMERGENCY ROOM IF ANY NEW OR WORSENING SYMPTOMS. Forms: Return to Work I personally performed the services described in the documentation, reviewed and edited the documentation which was dictated to the scribe in my presence, and it accurately records my words and actions.
[2020-05-07 11:02] LABS: ABSOLUTE EOSINOPHILS # (AUTO) 0.1 10^3/uL (0.0-0.6); ABSOLUTE LYMPHOCYTES (AUTO) 2.6 10^3/uL (0.5-4.7); ABSOLUTE MONOCYTES (AUTO) 0.4 10^3/uL (0.1-1.4); ABSOLUTE NEUT (AUTO) 5.3 10^3/uL (1.7-8.2); BASOPHILS % (AUTO) 0.3 % (0-2); EOSINOPHILS % (AUTO) 1.5 % (0-6); HEMATOCRIT 41.1 % (36.0-47.0); LYMPHOCYTES % (AUTO) 30.5 % (13-45); MEAN CORPUSCULAR HEMOGLOBIN 29.9 pg (27.0-33.4); MEAN CORPUSCULAR HGB CONC 34.2 g/dL (32.0-36.0); MEAN CORPUSCULAR VOLUME 87 fl (80-97); MONOCYTES % (AUTO) 4.2 % (3-13); PLATELET COUNT 177 10^3/uL (150-450); RED CELL DISTRIBUTION WIDTH 14.9 % (11.5-14.0); SEGMENTED NEUTROPHILS % (AUTO) 63.5 % (42-78); TOTAL CELLS COUNTED % (AUTO) 100 %; WHITE BLOOD COUNT 8.4 10^3/uL (4.0-10.5)
[2020-05-07 11:05] LABS: APPEARANCE,URINE CLEAR; BILIRUBIN,URINE NEGATIVE (NEGATIVE); COLOR,URINE STRAW; GLUCOSE, URINE NEGATIVE (NEGATIVE); KETONES,URINE NEGATIVE (NEGATIVE); LEUKOCYTE ESTERASE,URINE NEGATIVE (NEGATIVE); NITRITE,URINE NEGATIVE (NEGATIVE); PROTEIN,URINE NEGATIVE (NEGATIVE); UROBILINOGEN,URINE NEGATIVE mg/dL (<2.0)
[2020-05-07 11:25] LABS: ALBUMIN 4.3 g/dL (3.5-5.0); ALKALINE PHOSPHATASE 82 U/L (38-126); ANION GAP 9 (5-19); ASPARTATE AMINO TRANSFERASE 22 U/L (14-36); BILIRUBIN,DIRECT 0.2 mg/dL (0.0-0.4); BILIRUBIN,TOTAL 0.2 mg/dL (0.2-1.3); BLOOD UREA NITROGEN 9 mg/dL (7-20); CALCIUM 9.3 mg/dL (8.4-10.2); CARBON DIOXIDE 29 mmol/L (22-30); CHLORIDE 103 mmol/L (98-107); GLUCOSE 104 mg/dL (75-110); POTASSIUM 4.7 mmol/L (3.6-5.0); TOTAL PROTEIN 7.9 g/dL (6.3-8.2)
[2020-05-07] MEDS ORDERED: FAMOTIDINE INJ/PF 20 MG/2 ML SDV IV ONE (11:54)
[2020-05-07 13:24] VITALS: BP 143/91
== END 2020-05-07 13:23 | disposition home or self-care (01) ==
LOC: ER 10:12
DX: K21.9 Gastro-esophageal reflux disease without esophagitis (principal); R10.13 Epigastric pain; R10.816 Epigastric abdominal tenderness; R11.0 Nausea; R19.5 Other fecal abnormalities; R19.4 Change in bowel habit; M54.9 Dorsalgia, unspecified; F17.210 Nicotine dependence, cigarettes, uncomplicated; Z90.49 Acquired absence of other specified parts of digestive tract; Z88.1 Allergy status to other antibiotic agents; Z88.6 Allergy status to analgesic agent; Z88.5 Allergy status to narcotic agent; Z88.0 Allergy status to penicillin; Z88.8 Allergy status to other drugs, medicaments and biological substances
CPT/HCPCS: 99284; 96374; 36415; 83690; 84703; 85025; 80053; 81001; S0119; J3490; S0028